=== PATIENT | female | born 1990 | race Caucasian/White ===

== ENCOUNTER 2022-12-10 15:48 | Emergency (ER) | payer BC ==
[2022-12-10 15:55] VITALS: BP 118/69; PULSE 78; RESP 19; TEMP 97.6; BMI 28.7
== END 2022-12-10 18:24 | disposition home or self-care (01) ==
LOC: JERFT 15:48
DX: S92.425A Nondisplaced fracture of distal phalanx of left great toe, initial encounter for closed fracture (principal); R26.89 Other abnormalities of gait and mobility; W01.0XXA Fall on same level from slipping, tripping and stumbling without subsequent striking against object, initial encounter
CPT/HCPCS: 73660-TC-LT-FY; 99283-25